=== PATIENT | male | born 1980 | race Caucasian/White ===

== ENCOUNTER 2018-02-01 09:55 | Emergency (ER) | payer OTHER ==
[~2018-02-01] VITALS: Ht 182.9 cm; Wt 90.7 kg
[~2018-02-01 09:55] MED LIST: ADDERALL 20 MG20 MG PO; EC-NAPROSYN500 MG PO; FOCALIN XR40 MG PO; GLUCOSAMINE &1 EAC1 PO; IBUPROFEN400 MG PO; NORCO 5-325 TA1 EACH PO
== END 2018-02-01 10:22 | disposition home or self-care (01) ==
LOC: ED 09:55
DX: S81.812A Laceration without foreign body, left lower leg, initial encounter (principal); W22.8XXA Striking against or struck by other objects, initial encounter; Y99.0 Civilian activity done for income or pay

== ENCOUNTER 2018-02-01 10:28 | Emergency (ER) | payer OTHER ==
[~2018-02-01] VITALS: Ht 182.9 cm; Wt 90.7 kg
== END 2018-02-01 12:55 | disposition home or self-care (01) ==
LOC: ED 10:28
PROC: 0HQLXZZ Repair Left Lower Leg Skin, External Approach (ICD-10-PCS; principal; 2018-02-01)
DX: S81.812A Laceration without foreign body, left lower leg, initial encounter (principal); Z23 Encounter for immunization; F17.200 Nicotine dependence, unspecified, uncomplicated; Z79.899 Other long term (current) drug therapy; W22.8XXA Striking against or struck by other objects, initial encounter; Y99.0 Civilian activity done for income or pay
CPT/HCPCS: 12002; 90471; 90715; 99282

== ENCOUNTER 2018-10-01 10:13 | Emergency (ER) | payer OTHER ==
[~2018-10-01] VITALS: Ht 182.9 cm; Wt 90.7 kg
[2018-10-01] MEDS ORDERED: IBUPROFEN600 MG PO (10:58)
[2018-10-01] MEDS ORDERED: CILOXAN5 ML OS (10:58)
== END 2018-10-01 11:00 | disposition home or self-care (01) ==
LOC: ED 10:13
DX: S05.02XA Injury of conjunctiva and corneal abrasion without foreign body, left eye, initial encounter (principal); F17.200 Nicotine dependence, unspecified, uncomplicated; Z79.899 Other long term (current) drug therapy; X58.XXXA Exposure to other specified factors, initial encounter
CPT/HCPCS: 99283

== ENCOUNTER 2019-09-24 12:58 | Emergency (ER) | payer OTHER ==
[~2019-09-24] VITALS: Ht 182.9 cm; Wt 95.2 kg
[~2019-09-24 12:58] MED LIST changes: +CILOXAN5 ML OS; +IBUPROFEN600 MG PO
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
== END 2019-09-24 14:22 | disposition home or self-care (01) ==
LOC: ED 12:58
DX: S39.011A Strain of muscle, fascia and tendon of abdomen, initial encounter (principal); Z87.891 Personal history of nicotine dependence; Z79.899 Other long term (current) drug therapy; X50.9XXA Other and unspecified overexertion or strenuous movements or postures, initial encounter
CPT/HCPCS: 99283

== ENCOUNTER 2020-09-17 07:25 | Emergency (ER) | payer OTHER ==
[~2020-09-17] VITALS: Ht 182.9 cm; Wt 99.8 kg
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
[2020-09-17] MEDS ORDERED: PERCOCET 5-3251 EACH PO (17:09)
--- NOTE | 2020-09-17 19:29 | EKG ---
[facility] [address] [place], [place] [address] Signed Normal sinus rhythm Indeterminate axis Right bundle branch block Inferior infarct , age undetermined Abnormal ECG No previous ECGs available Confirmed by JOSE NAIDU DO ([id number]) on 09/17/2020 7:28:59 PM Electronically Signed By: JOSE NAIDU DO 09/17/20 1929 PATIENT NAME: DANIEL [facility] EDILSON Electrocardiogram DATE OF : 76 PHYSICIAN: JOSE NAIDU DO REPORT #: [id number] REPORT IS CONFIDENTIAL AND NOT TO BE RELEASED WITHOUT AUTHORIZATION
== END 2020-09-17 17:45 | disposition home or self-care (01) ==
LOC: ED 07:25
DX: S22.43XA Multiple fractures of ribs, bilateral, initial encounter for closed fracture (principal); S12.600A Unspecified displaced fracture of seventh cervical vertebra, initial encounter for closed fracture; S22.019A Unspecified fracture of first thoracic vertebra, initial encounter for closed fracture; S22.029A Unspecified fracture of second thoracic vertebra, initial encounter for closed fracture; S22.039A Unspecified fracture of third thoracic vertebra, initial encounter for closed fracture; S22.049A Unspecified fracture of fourth thoracic vertebra, initial encounter for closed fracture; S22.059A Unspecified fracture of T5-T6 vertebra, initial encounter for closed fracture; V47.5XXA Car driver injured in collision with fixed or stationary object in traffic accident, initial encounter
CPT/HCPCS: 70210; 70450; 71260; 72040; 72125; 72141; 74177; 80053; 85025; 93005; 93010; 99284-25; J1170; J1885; J2405; Q9967

== ENCOUNTER 2021-03-12 09:12 | Emergency (ER) | payer OTHER ==
[~2021-03-12] VITALS: Ht 182.9 cm; Wt 99.8 kg
[~2021-03-12 09:12] MED LIST changes: +PERCOCET 5-3251 EACH PO
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
[2021-03-12] MEDS ORDERED: HYDROCODON-ACE1 EA10 PO (11:35)
[2021-03-12] MEDS ORDERED: FLOMAX0.4 MG PO (11:35)
[2021-03-12] MEDS ORDERED: ZOFRAN4 MG PO (11:35)
== END 2021-03-12 11:59 | disposition home or self-care (01) ==
LOC: ED 09:12
DX: N13.2 Hydronephrosis with renal and ureteral calculous obstruction (principal)
CPT/HCPCS: 74176; 80048; 81001; 85025; 96374; 96375; 99284-25; J1885; J2405; J7030